=== PATIENT | male | born 1995 | race Caucasian/White ===

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

== ENCOUNTER 2022-08-16 11:02 | Emergency (ER) | payer BC ==
[2022-08-16] MEDS ORDERED: Ondansetron 4 MG Tab.DIS PO ONE (12:31)
[2022-08-16] MEDS ORDERED: Acetaminophen/HYDROcodone 325-5 MG Tab PO ONE (12:31)
== END 2022-08-16 14:12 | disposition home or self-care (01) ==
LOC: MW.ED 11:02
DX: S63.502A Unspecified sprain of left wrist, initial encounter (principal); J45.909 Unspecified asthma, uncomplicated; Z88.0 Allergy status to penicillin; Z87.891 Personal history of nicotine dependence; W23.1XXA Caught, crushed, jammed, or pinched between stationary objects, initial encounter
CPT/HCPCS: 29125; 73110; 73130; 99283; A9270